=== PATIENT | male | born 1985 | race Hispanic/Latino ===

== ENCOUNTER 2018-07-09 18:32 | Emergency (ER) | payer OTHER ==
[2018-07-09] MEDS ORDERED: TETANUS/DIPHTHERIA TOXOID [ADULT] 0.5 ML VIAL IM ONE (18:44)
[2018-07-09] MEDS ORDERED: OCTYL 2-CYANOACRYLATE 1 EACH TP ONE (18:45)
== END 2018-07-09 19:19 | disposition home or self-care (01) ==
LOC: EDH 18:32
DX: S61.211A Laceration without foreign body of left index finger without damage to nail, initial encounter (principal); Z72.0 Tobacco use; W26.8XXA Contact with other sharp object(s), not elsewhere classified, initial encounter; Y93.89 Activity, other specified; Y92.511 Restaurant or cafe as the place of occurrence of the external cause; Y99.8 Other external cause status
CPT/HCPCS: 12001; 73140; 90471; 90714